=== PATIENT | male | born 1995 | race Caucasian/White ===

== ENCOUNTER → 2018-06-25 | Outpatient (CLI) | payer BC ==
[2018-06-25 09:02] LABS: HEMOGLOBIN 15.7 G/DL (13.3-17.7); MEAN PLATELET VOLUME 9.7 FL (7.4-10.4); RED BLOOD COUNT 5.32 10^6/uL (4.35-5.85); RED CELL DISTRIBUTION WIDTH 12.2 % (10.0-14.5)
--- NOTE | 2018-06-25 09:29 | Diagnostic Imaging Report ---
INDICATION: Cough PA and lateral views of the chest were obtained. Comparison is made to the study of 06/14/2007. FINDINGS: Heart size and pulmonary vascularity are within normal limits, and the lungs are clear, bilaterally. IMPRESSION: Unremarkable chest. Dictated by: Dictated on workstation # [id number]
[2018-06-25 09:31] LABS: ALANINE AMINOTRANSFERASE 32 U/L (0-55); ALBUMIN 4.4 GM/DL (3.2-4.5); ALKALINE PHOSPHATASE 66 U/L (40-136); BILIRUBIN,TOTAL 0.7 MG/DL (0.1-1.0); BUN/CREATININE RATIO 11; CALCIUM 9.7 MG/DL (8.5-10.1); CARBON DIOXIDE 26 MMOL/L (21-32); CHLORIDE 105 MMOL/L (98-107); CREATININE SERUM 1.08 MG/DL (0.60-1.30); GFR ESTIMATED > 60; GLUCOSE 101 MG/DL (70-105); MAGNESIUM 2.3 MG/DL (1.8-2.4); PHOSPHORUS 3.1 MG/DL (2.3-4.7); POTASSIUM 4.3 MMOL/L (3.6-5.0); SODIUM 138 MMOL/L (135-145); TOTAL PROTEIN 7.5 GM/DL (6.4-8.2)
== END ==
LOC: LAB 08:42
PROVIDERS: ATTEND Internal Medicine Critical Care Medicine
DX: R06.02 Shortness of breath (principal); R53.1 Weakness; R53.83 Other fatigue
CPT/HCPCS: 36415; 71046; 80053; 83735; 84100; 84443; 85027

== ENCOUNTER 2019-09-24 16:52 | Emergency (ER) | payer BC ==
[~2019-09-24] VITALS: Ht 172.7 cm; Wt 84.0 kg
[2019-09-24] MEDS ORDERED: RX-CEPHALEXIN (KEFLEX) 250 MG CAP PPK#4 PO STA (17:04)
[2019-09-24] MEDS ORDERED: CEPH-507 PO (17:10)
--- NOTE | 2019-09-24 17:11 | ED Integumentary General ---
General Chief Complaint: Skin/Wound Problems Stated Complaint: STEPPED ON A NAIL Source: patient Exam Limitations: no limitations History of Present Illness Date Seen by Provider: Sep 24, 2019 Time Seen by Provider: 17:07 Initial Comments To ER with reports of a puncture wound to the plantar surface of the right foot. He stepped on a nail on a porch that he had recently renovated, the nail went through his shoe into his foot. He is here because of concerns that he does not remember when his last tetanus shot was. He did go to public schools and believes that it was up-to-date when he was in a public school system. Timing/Duration: just prior to arrival Severity: mild Associated Symptoms: denies symptoms Allergies and Home Medications Allergies Coded Allergies: No Known Drug Allergies (Unverified , 09/24/19) Patient Home Medication List Home Medication List Reviewed: Yes Review of Systems Review of Systems Constitutional: see HPI EENTM: see HPI Respiratory: no symptoms reported Cardiovascular: no symptoms reported Genitourinary: no symptoms reported Musculoskeletal: no symptoms reported Skin: see HPI Psychiatric/Neurological: No Symptoms Reported Endocrine: No Symptoms Reported Past Vshrkqk-[id number]-[id number] Hx Patient Social History Recent Foreign Travel: No Contact w/Someone Who Travel: No Physical Exam Vital Signs Capillary Refill : General Appearance: WD/WN, no apparent distress Neck: non-tender, full range of motion Respiratory: no respiratory distress, no accessory muscle use Extremities: normal range of motion, non-tender Neurologic/Psychiatric: alert, normal mood/affect, oriented x 3 Skin: normal color, warm/dry Skin Problem Location: lower extremities Skin Problem Character: other (there is a very small nearly identifiable puncture wound to the plantar surface of the arch of the foot. No active bleeding) Progress/Results/Core Measures Results/Orders My Orders Orders - ARTURO WHEELER APRN Rx-Cephalexin Capsule (Rx-Keflex Capsule (09/24/19 17:04) Dipht,Pertuss(Acell),Tet Adult (Boostrix (09/24/19 17:15) Departure Impression Primary Impression: Puncture wound Disposition: 01 HOME, SELF-CARE Condition: Improved Departure-Patient Inst. Decision time for Depature: 17:09 Referrals: PEPE SWENSON MD (PCP/Family) Primary Care Physician Patient Instructions: Wound Infection Add. Discharge Instructions: 1. Return to ER for any redness or swelling or severe pain of the foot. Antibiotics as directed. All discharge instructions reviewed with patient and/or family. Voiced understanding. Scripts Cephalexin (Keflex) 500 Mg Capsule 500 MG PO TID, #9 CAP Prov: ARTURO WHEELER APRN 09/24/19 ARTURO WHEELER APRN Sep 24, 2019 17:11
[2019-09-24] MEDS ORDERED: TETANUS,DIPTH,PERTUSS P/F (BOOSTRIX) 0.5 ML VIAL IM ONE (17:15)
[2019-09-24] MEDS ORDERED: BUSP15TA60 (17:17)
[2019-09-24 17:21] VITALS: BP 145/89
== END 2019-09-24 17:21 | disposition home or self-care (01) ==
LOC: EDUNIT# 16:52 → ER 16:53
DX: S91.331A Puncture wound without foreign body, right foot, initial encounter (principal); Z23 Encounter for immunization; W45.0XXA Nail entering through skin, initial encounter
CPT/HCPCS: 90471; 90715; 99284